=== PATIENT | female | born 1940 | race African-American/Black ===

== ENCOUNTER 2017-09-11 16:17 | Emergency (ER) | payer MEDICARE, OTHER ==
[~2017-09-11] VITALS: Ht 162.6 cm; Wt 104.3 kg
[~2017-09-11 16:17] MED LIST: AMLODIPINE BES2.5 MG ORAL; METOPROLOL TART50 MG ORAL; PRAVASTATIN SOD10 M1 PO
[2017-09-11 16:45] VITALS: BP 178/79
--- NOTE | 2017-09-11 16:48 | Emergency Room Report ---
History of Present Illness General Chief Complaint: Headache Source: Patient Present Illness HPI 77-year-old female walks in with 2 weeks of intermittent generalized headache, associated with intermittent dizziness and blurry vision. No associated fever chills or neck pain or stiffness. Patient has known high blood pressure; takes metoprolol for "palpitations". Patient was at [facility] ER 3 days ago, had negative MRI brain, has results with her. At time of discharge from [facility], BP was normal. Patient stated that she saw her PMD 10 days ago was started on irbesartan for her symptoms and blood pressure control but she states it's "not working". Saw PMD 3 days ago, blood work was "normal." States that years ago she was taking Norvasc and "never had these symptoms". Is not taking any pain medication. Allergies: Coded Allergies: No Known Allergies (Unverified , 04/02/13) Patient History Past Medical History: HTN Past Surgical History: none Pertinent Family History: none Social History: Denies: smoking, alcohol use, drug use Now: No Immunizations: UTD Reviewed Nursing Documentation: PMH: Agreed, PSxH: Agreed Nursing Documentation-PMH Hx Hypertension: Yes - HIGH CHOLESTEROL Review of Systems All Other Systems: negative except mentioned in HPI Physical Exam Vital Signs Date Time Temp Pulse Resp B/P (MAP) Pulse Ox O2 Delivery O2 Flow Rate FiO2 09/11/17 16:21 97.9 74 20 206/92 96 Room Air Sp02 EP Interpretation: reviewed, normal General Appearance: normal inspection, well appearing, no apparent distress, alert, GCS 15, non-toxic Head: normocephalic, atraumatic Eyes: bilateral eye PERRL, bilateral eye EOMI ENT: normal ENT inspection, hearing grossly normal, normal pharynx, no angioedema, normal voice, TMs + canals normal, uvula midline, moist mucus membranes Neck: normal inspection, full range of motion, supple, thyroid normal, no meningismus, no bony tend Respiratory: normal inspection, lungs clear, normal breath sounds, no rhonchi, no respiratory distress, no retraction, no accessory muscle use, no wheezing, speaking full sentences Cardiovascular #1: regular rate, rhythm, no edema, no JVD, normal capillary refill Gastrointestinal: normal inspection, normal bowel sounds, non tender, soft, no mass, no peritonitis, non-distended, no guarding, no hernia, no pulsatile mass Genitourinary: no CVA tenderness Musculoskeletal: normal inspection, back normal, normal range of motion, no calf tenderness, pelvis stable, Mac's Sign negative Neurologic: normal inspection, alert, oriented x3, responsive, 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, motor strength/tone normal, cerebellar normal, normal gait, speech normal Psychiatric: normal inspection, judgement/insight normal, mood/affect normal, no suicidal/homicidal ideation, no delusions Skin: normal inspection, normal color, no rash Lymphatic: normal inspection, no adenopathy Medical Decision Making Diagnostic Impression: Primary Impression: Headache Qualified Codes: G44.219 - Episodic tension-type headache, not intractable Additional Impression: Hypertension Qualified Codes: I10 - Essential (primary) hypertension ER Course 77-year-old female with elevated BP and 2 weeks of headache VS significant for elevated systolic blood pressure With recent normal MRI, unlikely posterior mass or CVA Atraumatic Elevated BP likely due to pain versus uncontrolled HTN BP improved from 206/92 to 188/78 after tx for pain, BP Recommending STOP irbesartan - restart Norvasc Tylenol for pain control Has PMD appt on Sep 17 yo M F with DDX: Plan: Obtain labs, ua, ucx, ucg, CXR, EKG ER course: Patient has remained stable during ED stay. Disposition: Patient is to be discharged to home. Prescriptions given are norvasc, tylenol Patient is instructed to follow up with their primary care doctor Sep 15 Strict return precautions discussed with patient such as fever, chills, worsening/severe pain, nausea, vomiting, which may indicate severe illness. Patient verbalizes understanding and agrees with plan. Please note that this Emergency Department Report was dictated using [employer] technology software, occasionally this can lead to erroneous entry secondary to interpretation by the dictation equipment Rhythm Strip Diag. Results EP Interpretation: yes Rate: 65 Rhythm: NSR, no PVC's, no ectopy Last Vital Signs Date Time Temp Pulse Resp B/P (MAP) Pulse Ox O2 Delivery O2 Flow Rate FiO2 09/11/17 16:21 97.9 74 20 206/92 96 Room Air Status: improved Disposition: HOME, SELF-CARE AMAYA PEDRO M.D. Sep 11, 2017 16:48
[2017-09-11] MEDS ORDERED: NORVASC5 MG ORAL (17:02)
[2017-09-11] MEDS ORDERED: TYLENOL325 MG ORAL (17:02)
[2017-09-11 18:08] VITALS: BP 172/75
== END 2017-09-11 18:09 | disposition home or self-care (01) ==
LOC: EMR 17:50
DX: R51 Headache (principal); I10 Essential (primary) hypertension
CPT/HCPCS: 99283